=== PATIENT | male | born 1990 | race Hispanic/Latino ===

== ENCOUNTER → 2023-07-07 14:44 | Outpatient (CLI) | payer OTHER, MEDICAID, SELFPAY ==
--- NOTE | 2023-07-07 | DI.NM.S_ITS ---
PROCEDURE: NM EXERCISE TREADMILL NON NUC COMPARISON: None INDICATIONS: Chest pain FINDINGS: Rest ECG sinus rhythm. Jerel protocol 7:40, maximum heart rate 169 bpm (91% peak predicted), maximum blood pressure 202/104, 8.1 METS, BRANDEN +41%. Exercise ECG sinus tachycardia, no ST segment changes or arrhythmia. Rare PVCs noted. The patient did not complain of exercise-induced chest pain. IMPRESSION: Low risk study for ischemia. No evidence of exercise-induced ischemia or arrhythmia. Accelerated heart rate response and hypertensive response to exercise. Reduced exercise capacity. Dictated by: Jo Rene D.O. on 07/07/2023 at 16:51 Approved by: Jo Rene D.O. on 07/07/2023 at 16:53
== END ==
LOC: RAD 14:47
PROVIDERS: PCP Student in an Organized Health Care Education/Training Program; Referring Provider Student in an Organized Health Care Education/Training Program; Visit Provider Student in an Organized Health Care Education/Training Program
DX: R07.9 Chest pain, unspecified (principal)
CPT/HCPCS: 93017

== ENCOUNTER → 2023-07-18 16:44 | Outpatient (CLI) | payer OTHER, MEDICAID, SELFPAY | PROVIDERS: PCP Student in an Organized Health Care Education/Training Program; Referring Provider Student in an Organized Health Care Education/Training Program; Visit Provider Student in an Organized Health Care Education/Training Program | DX: R06.09 Other forms of dyspnea (principal) | CPT/HCPCS: 94060; 94726; 94729 ==